=== PATIENT | male | born 1970 | race Caucasian/White ===

== ENCOUNTER 2016-07-15 14:23 | Emergency (ER) | payer OTHER ==
--- NOTE | 2016-07-15 16:14 | RAD ---
Indication: Right lower extremity pain and edema. Duplex Doppler sonography of the deep venous system of the right lower extremity was performed. Comparison is made with previous exam dated December 28, 2015. Right common femoral vein demonstrates echogenic material. This is due to prior thrombus. The proximal deep femoral vein in the proximal femoral vein demonstrates echogenic material without compressibility consistent with recent thrombus. No flow is noted. The mid and distal femoral vein and the popliteal vein is partially compressible. IMPRESSION: There is deep venous thrombosis involving the proximal deep femoral vein in the proximal femoral vein which appears to be occlusive. Nonocclusive deep venous thrombosis is noted in the right common femoral vein, mid and distal femoral vein and popliteal vein.
[2016-07-15 16:48] VITALS: BP 147/82
--- NOTE | 2016-07-15 22:45 | UC ---
Dyana Abbasi SooYoung, scribed for Tristen Sears MD on 07/15/16 at 1552 . Lower Extremity/Ankle HPI - HPI Summary HPI Summary: A 46 y/o M presents to [facility] [place] with c/o RLE pain above the knee onset approx a few days ago. Associated sx: edema. Denies SOB, CP. He's concerned about a DVT due to a history of DVT, last one was approx 6 months ago, no cause specified. Pt is non-compliant with his Xeralto. Pt is a smoker. - History of Current Complaint Chief Complaint: UCLowerExtremity Stated Complaint: LEG PAIN-PRIOR BLOOD CLOTS Time Seen by Provider: 07/15/16 14:53 Hx Obtained From: Patient Onset/Duration: Lasting Days, Still Present Severity Initially: Mild Severity Currently: Mild Pain Intensity: 0 Pain Scale Used: 0-10 Numeric - Allergies/Home Medications Allergies/Adverse Reactions: Allergies Allergy/AdvReac Type Severity Reaction Status Date / Time No Known Allergies Allergy Verified 07/15/16 14:35 Home Medications: Home Medications Aspirin [Meenakshi Aspirin EC Low Dose 81 MG] 1 tab PO ONCE PRN 07/15/16 [History Confirmed 07/15/16] PMH/Surg Hx/FS Hx/Imm Hx Previously Healthy: No Cardiovascular History: Hypertension, Myocardial Infarction - stent, Deep Vein Thrombosis Other History Of: Negative For: Anticoagulant Therapy - Surgical History Surgical History: Yes Surgery Procedure, Year, and Place: appendectomy. CARDIAC STENT PLACED 07/2012- [employer] 1.5-3T UP TO 720 G/CM - Family History Known Family History: Positive: Other - vasuclar issues - Social History Occupation: Employed Full-time Lives: Alone Alcohol Use: Rare Substance Use Type: Cocaine, Heroin, Marijuana Substance Use Comment - Amount & Last Used: (<1month) Smoking Status (MU): Current Some Day Smoker Type: Cigarettes, Smokeless Tobacco Amount Used/How Often: < one pack per month Length of Time of Smoking/Using Tobacco: 35 YEARS Have You Smoked in the Last Year: Yes Household Exposure Type: Cigarettes Review of Systems Respiratory: Negative Cardiovascular: Negative Musculoskeletal: Edema - RLE, Other: - POS: RLE PAIN ABOVE KNEE, All Other Systems Reviewed And Are Negative: Yes Physical Exam Triage Information Reviewed: Yes Vital Signs: Initial Vital Signs Temp 97.5 F 07/15/16 14:27 Pulse 97 07/15/16 14:27 Resp 18 07/15/16 14:27 BP 133/85 07/15/16 14:27 Pulse Ox 99 07/15/16 14:27 Vital Signs Reviewed: Yes - Additional Comments The patient is well-nourished in no acute distress and in no acute pain. The skin is warm and dry and skin color reflects adequate perfusion. HEENT: The head is normocephalic and atraumatic. The pupils are equal and reactive. The conjunctivae are clear and without drainage. Nares are patent and without drainage. Mouth reveals moist mucous membranes and the throat is without erythema and exudate. The external ears are intact. The ear canals are patent and without drainage. The tympanic membranes are intact. Neck is supple with full range of motion and non-tender. There are no carotid bruits. There is no neck vein distension. Respiratory: Chest is non-tender. Lungs are clear to auscultation and breath sounds are symmetrical and equal. Cardiovascular: TACHY. There is no murmur or rub auscultated. Pulses are symmetrical and equal. Abdomen: The abdomen is soft and non-tender. There are normal bowel sounds heard in all four quadrants and there is no organomegaly palpated. Musculoskeletal: There is no back pain noted. Extremities are non-tender with full range of motion. There is good capillary refill. MARKED SWELLING TO R THIGH COMPARED TO L; NO CALF TENDERNESS; GOOD POPLITEAL PULSE; SAW NO PROMINENT VEINS OR THROMBUS; AREA IS NOT RED OR ERYTHEMATOUS. PAIN IS MOSTLY LOCATED AT R GROIN. NO ADENOPATHY IN GROIN. FROM. Neurological: Patient is alert and oriented to person, place and time. The patient has symmetrical motor strength in all four extremities. Cranial nerves are grossly intact. Deep tendon reflexes are symmetrical and equal in all four extremities. Psychiatric: The patient has an appropriate affect and does not exhibit any anxiety or depression. Diagnostics - Laboratory Diagnostic Studies Completed/Ordered: US IMPRESSION, READ BY RADIOLOGIST: There is deep venous thrombosis involving the proximal deep femoral vein in the proximal femoral vein which appears to be occlusive. Nonocclusive deep venous thrombosis is noted in the right common femoral vein, mid and distal femoral vein and popliteal vein. Lower Extremity Course/Dx - Course Course Of Treatment: Elevated BP but has current hypertension diagnosis. Pt medications reviewed this visit. - Differential Dx/Diagnosis Differential Diagnosis/HQI/PQRI: DVT, Other - non compliant Provider Diagnoses: DVT in RLE. Blood pressure in poor control. Discharge - Discharge Plan Condition: Stable Disposition: HOME Prescriptions: HYDROcodone/ACETAMIN 5-325 MG* [[place] 5-325 TAB*] 1 tab PO Q6H PRN #20 tab MDD 4 PRN Reason: pain Rivaroxaban TAB(*) [Xarelto 15 mg(*)] 15 mg PO BID #42 tab Patient Education Materials: Hydrocodone/Acetaminophen (By mouth), Rivaroxaban (By mouth), Deep Venous Thrombosis (ED) Forms: *Work Release Referrals: Candy Alvarado MD [Primary Care Provider] - 7 Days (Follow up within the next 7 days.) Additional Instructions: Follow up with your primary care provider within the next 5 days. The documentation as recorded by the Dyana lima SooYoung accurately reflects the service I personally performed and the decisions made by , Tristen Sears MD.
== END 2016-07-15 16:42 | disposition home or self-care (01) ==
LOC: UCEAST 14:23
DX: I82.401 Acute embolism and thrombosis of unspecified deep veins of right lower extremity (principal); F17.210 Nicotine dependence, cigarettes, uncomplicated; I10 Essential (primary) hypertension; I25.2 Old myocardial infarction; F14.90 Cocaine use, unspecified, uncomplicated; F11.90 Opioid use, unspecified, uncomplicated; F12.90 Cannabis use, unspecified, uncomplicated; Z91.14 Patient's other noncompliance with medication regimen; Z86.718 Personal history of other venous thrombosis and embolism; Z79.82 Long term (current) use of aspirin; Z79.01 Long term (current) use of anticoagulants
CPT/HCPCS: 99212; G0463

== ENCOUNTER 2018-01-31 12:21 | Emergency (ER) | payer OTHER ==
--- NOTE | 2018-01-31 14:18 | UC ---
Back Pain HPI - HPI Summary HPI Summary: 48 year old male presents with 5 day history of right lower back pain. Describes as "sharp". Non-radiating. Worsens with bending, twisting, and squatting. Has history of kidney stone and diverticulitis in past but states that this pain is different. Had normal, formed BM yesterday. Denies fever, chills, chest pain, shortness of breath, abdominal pain, nausea, vomiting, diarrhea, blood in stool, dysuria, frequency, urgency, or hematuria. - History of Current Complaint Chief Complaint: UCBackPain Stated Complaint: LOWER BACK PAIN Time Seen by Provider: 01/31/18 14:15 Hx Obtained From: Patient Pain Intensity: 9 - Allergies/Home Medications Allergies/Adverse Reactions: Allergies Allergy/AdvReac Type Severity Reaction Status Date / Time No Known Allergies Allergy Verified 01/31/18 12:30 PMH/Surg Hx/FS Hx/Imm Hx Endocrine History: Dyslipidemia Cardiovascular History: Cardiac Disease, Hypertension, Myocardial Infarction, Deep Vein Thrombosis GI/ History: Kidney Stones, Diverticulitis Other History Of: Negative For: Anticoagulant Therapy - Surgical History Surgical History: Yes Surgery Procedure, Year, and Place: appendectomy. CARDIAC STENT PLACED 07/2012- [employer] 1.5-3T UP TO 720 G/CM - Family History Known Family History: Positive: Other - vasuclar issues - Social History Occupation: Employed Full-time Lives: With Family Alcohol Use: None Substance Use Type: None Substance Use Comment - Amount & Last Used: (<1month) Smoking Status (MU): Current Some Day Smoker Type: Cigarettes, Smokeless Tobacco Amount Used/How Often: < one pack per month Length of Time of Smoking/Using Tobacco: 35 YEARS Have You Smoked in the Last Year: Yes Household Exposure Type: Cigarettes Review of Systems All Other Systems Reviewed And Are Negative: Yes Constitutional: Negative: Fever, Chills Respiratory: Negative: Shortness Of Breath, Cough Cardiovascular: Negative: Palpitations, Chest Pain Gastrointestinal: Negative: Abdominal Pain, Vomiting, Diarrhea, Nausea Genitourinary: Negative: Dysuria, Hematuria, Frequency, Urgency Motor: Negative: Weakness Neurovascular: Negative: Decreased Sensation Musculoskeletal: Positive: Other: - See HPI Is Patient Immunocompromised?: No Physical Exam - Summary Physical Exam Summary: GENERAL APPEARANCE: Well developed, well nourished, alert and cooperative, and appears to be in no acute distress. NECK: Neck supple, non-tender. CARDIAC: Normal S1 and S2. No S3, S4 or murmurs. Rhythm is regular. There is no peripheral edema, cyanosis or pallor. Extremities are warm and well perfused. Capillary refill is less than 2 seconds. LUNGS: Clear to auscultation and percussion without rales, rhonchi, wheezing or diminished breath sounds. ABDOMEN: Positive bowel sounds. Soft, nondistended, nontender. No guarding or rebound. No masses or hepatosplenomegally. No CVA tenderness. MUSKULOSKELETAL: ROM intact to all extremities. No joint erythema or tenderness. Normal muscular development. BACK: Examination of the spine reveals normal gait and posture, no spinal deformity, decreased range of motion, or muscular spasm. Tenderness with palpation to soft tissue right lumbar back. NEUROLOGICAL: Strength and sensation symmetric and intact throughout. Reflexes 2 + throughout. SKIN: Skin normal color, texture and turgor with no lesions or eruptions. Triage Information Reviewed: Yes Vital Signs: Initial Vital Signs Temp 98.3 F 01/31/18 12:27 Pulse 113 01/31/18 12:27 Resp 18 01/31/18 12:27 BP 149/101 01/31/18 12:27 Pulse Ox 100 01/31/18 12:27 Vital Signs Reviewed: Yes Diagnostics - Laboratory Diagnostic Studies Completed/Ordered: POC UA 1+ protein, 1+ bilirubin, 1+ ketones. Back Pain Course/Dx - Course Course Of Treatment: 48 year old male presents with 5 day history of right lower back pain. Describes as "sharp". Non-radiating. Worsens with bending, twisting, and squatting. Has history of kidney stone and diverticulitis in past but states that this pain is different. Had normal, formed BM yesterday. Denies fever, chills, chest pain, shortness of breath, abdominal pain, nausea, vomiting , diarrhea, blood in stool, dysuria, frequency, urgency, or hematuria. Afebrile. VSS. Exam revealed soft tissue tenderness of the right lumbar back without spasm. POC UA showed 1+ protein, 1+ ketones, 1+ bilirubin. He was given injection of ketoralac 30 mg IM in the clinic. Prescribed naproxen 500 mg BID and cyclobenzaprine 10 mg Q8H PRN for low back strain. He is to follow up with PCP in 5 days if symptoms persist. Warning symptoms were reviewed with patient and with his past history of renal calculi and diverticulitis we discussed him having a low threshold for going to the ED for any worsening of symptoms. Verbalizes understanding and agrees with POC. - Differential Dx/Diagnosis Differential Diagnosis/HQI/PQRI: Arthritis, Herniated Disc, Renal Colic, Strain Provider Diagnosis: Acute low back pain Discharge - Sign-Out/Discharge Documenting (check all that apply): Patient Departure All imaging exams completed and their final reports reviewed: No Studies - Discharge Plan Condition: Stable Disposition: HOME Prescriptions: Cyclobenzaprine TAB* [Flexeril 10 MG TAB*] 10 mg PO TID PRN #15 tab PRN Reason: Spasms - Back Naproxen [Naproxen 500 mg tab] 500 mg PO Q12HR #30 tablet Patient Education Materials: Acute Low Back Pain (ED) Forms: *Work Release Referrals: Candy Alvarado MD [Primary Care Provider] - 5 Days (If no improvement.) Additional Instructions: The urine test performed in the clinic today did not show any evidence of an infection or blood that would suggest a kidney stone. I suspect that the pain is muscular however I cannot fully rule out a possible kidney stone or diverticulitis. You were given an injection of an anti-inflammatory pain medication called ketoraloac (Toradol) in the clinic today for the pain. Do not take any other anti-inflammatory medications such as ibuprofen (Advil, Motrin), naproxen (Aleve ), or aspirin for at least 8 hours after receiving this injection. You may start taking naproxen 500 mg 1 tab every 12 hours with food for next 5- 7 days tonight after 11:00 pm. Take cyclobenzaprine (Flexeril) 1 tab every 8 hours as needed for severe pain or spasm. This will cause drowsiness so do not take and drive or operate machinery. Use a heating pad for 15-20 minutes 4 times a day to help relax the muscles. Follow up with your primary care provider in 5 days if symptoms persist. Seek immediate medical attention in the emergency room if you develop fever greater than 100.5 F, have severe abdominal pain, persistent vomiting, blood in your bowel movement, worsening back pain, weakness, numbness, or tingling in leg (s), you lose control of your bowel or bladder, or have any worsening of symptoms. - Billing Disposition and Condition Condition: STABLE Disposition: Home
[2018-01-31] MEDS ORDERED: Ketorolac INJ* 30 MG/ML 1 ML VIAL IM ONE (14:43)
[2018-01-31 15:03] VITALS: BP 150/99
== END 2018-01-31 15:01 | disposition home or self-care (01) ==
LOC: UCEAST 12:21
DX: M54.5 Low back pain (principal); I10 Essential (primary) hypertension; I25.2 Old myocardial infarction; F17.210 Nicotine dependence, cigarettes, uncomplicated
CPT/HCPCS: 81003; 96372; 99212; G0463; J1885

== ENCOUNTER 2018-12-05 10:54 | Emergency (ER) | payer OTHER ==
[2018-12-05 11:16] VITALS: BP 155/111
--- NOTE | 2018-12-05 11:38 | UC ---
Shoulder Pain HPI - HPI Summary HPI Summary: Patient is a 48-year-old male presenting with left shoulder pain 1.5 weeks. She denies any injury or trauma. Notes pain is sharp and throbbing and worse with any kind of shoulder movement. It feels better when just relaxed at his side. Denies any numbness or tingling. Denies neck pain. Denies taking any medications for pain relief. Patient notes history of arthritis in his neck. - History of Current Complaint Chief Complaint: UCUpperExtremity Stated Complaint: SHOULDER INJURY Time Seen by Provider: 12/05/18 11:37 Hx Obtained From: Patient Onset/Duration: Gradual Onset, Lasting Weeks Pain Intensity: 3 - Allergies/Home Medications Allergies/Adverse Reactions: Allergies Allergy/AdvReac Type Severity Reaction Status Date / Time No Known Allergies Allergy Verified 12/05/18 11:09 PMH/Surg Hx/FS Hx/Imm Hx Other History Of: Negative For: Anticoagulant Therapy - Surgical History Surgical History: Yes Surgery Procedure, Year, and Place: appendectomy. CARDIAC STENT PLACED 07/2012- [employer] 1.5-3T UP TO 720 G/CM - Family History Known Family History: Positive: Other - vasuclar issues - Social History Alcohol Use: None Substance Use Type: None Substance Use Comment - Amount & Last Used: (<1month) Smoking Status (MU): Former Smoker Type: Cigarettes, Smokeless Tobacco Amount Used/How Often: < one pack per month Length of Time of Smoking/Using Tobacco: 35 YEARS Have You Smoked in the Last Year: Yes Household Exposure Type: Cigarettes Review of Systems All Other Systems Reviewed And Are Negative: Yes Constitutional: Positive: Negative Respiratory: Positive: Negative Cardiovascular: Positive: Negative Neurovascular: Positive: Negative. Negative: Decreased Sensation Musculoskeletal: Positive: Arthralgia, Decreased ROM, Myalgia. Negative: Edema Neurological: Positive: Weakness. Negative: Paresthesia, Numbness Physical Exam Triage Information Reviewed: Yes Appearance: Well-Appearing, No Pain Distress, Well-Nourished Vital Signs: Initial Vital Signs Temp 99 F 12/05/18 11:10 Pulse 95 12/05/18 11:10 Resp 16 12/05/18 11:10 BP 155/111 12/05/18 11:10 Pulse Ox 100 12/05/18 11:10 Vital Signs Reviewed: Yes Eyes: Positive: Conjunctiva Clear ENT: Positive: Hearing grossly normal Neck: Positive: Supple Respiratory: Positive: No respiratory distress Cardiovascular: Positive: Pulses Normal, Brisk Capillary Refill Musculoskeletal: Positive: Strength Intact, No Edema, ROM Limited @ - Left arm extension, internal and external rotation, Other: - tenderness to palpation of the left acromioclavicular joint. tenderness to palpation of left trapezius muscle Neurological: Positive: Alert Psychological: Positive: Age Appropriate Behavior Diagnostics - Radiology left shoulder Radiology Interpretation Completed By: Radiologist Summary of Radiographic Findings: Report: #. Negative for fracture or suspicious focal osseous lesions. #. Normal acromioclavicular and glenohumeral joint alignment. #. Moderately severe osteoarthritis at the acromioclavicular joint and mild osteophytic lipping without significant joint space narrowing at the glenohumeral joint. #. Negative for calcific tendinopathy or abnormal soft tissue contour. IMPRESSION: #. Osteoarthritis most prominent at the acromioclavicular joint. Shoulder Course/Dx - Course Course Of Treatment: Discussed osteoarthritis findings on x-ray with patient. I am treating with naproxen and Flexeril for pain and symptomatic relief. Instructed to follow-up with orthopedics or sports medicine for further evaluation. Patient voiced understanding and agreed with the treatment plan. - Differential Dx/Diagnosis Provider Diagnosis: Osteoarthritis of acromioclavicular joint Discharge ED - Sign-Out/Discharge Documenting (check all that apply): Patient Departure All imaging exams completed and their final reports reviewed: Yes - Discharge Plan Condition: Stable Disposition: HOME Prescriptions: Cyclobenzaprine TAB* [Flexeril 10 MG TAB*] 10 mg PO BID PRN #20 tab PRN Reason: Spasms - Muscle Naproxen TAB* [Naprosyn 250 mg TAB*] 500 mg PO BID PRN #30 tab PRN Reason: Pain - Moderate Patient Education Materials: Osteoarthritis (ED) Forms: *Work Release Referrals: [facility] [Outside] - As Soon As Possible [facility] [Outside] - If Needed Leila Peace MD [Medical Doctor] - As Soon As Possible Additional Instructions: As discussed, your xrays should moderate to severe osteoarthritis in your shoulder. Rest, ice, and/or heat to help relieve pain. Take naproxen as prescribed for pain relief. Do not take ibuprofen or other NSAIDS if you are taking naproxen. You may also take flexeril for relief of muscle spasming. This may make you drowsy, so do not drive or operate heavy machinery while taking it. Follow-up with the orthopedic or sports medicine referrals below as soon as possible for further evaluation. - Billing Disposition and Condition Condition: STABLE Disposition: Home
[2018-12-05] MEDS ORDERED: Ibuprofen TAB* 600 MG PO ONE (12:06)
== END 2018-12-05 12:28 | disposition home or self-care (01) ==
LOC: UCEAST 10:54
DX: M19.012 Primary osteoarthritis, left shoulder (principal); Z95.5 Presence of coronary angioplasty implant and graft; Z87.891 Personal history of nicotine dependence
CPT/HCPCS: 99212; A9270-GY; G0463

== ENCOUNTER 2018-12-27 11:06 | Emergency (ER) | payer OTHER ==
--- OUTSIDE RECORDS SUMMARY | 2018-12-27 11:10 | XMS REPORT | Continuity of Care Document ---
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 [phone] Medicine Problems Description No Information Available Social History Type Date Description Comments Sex Unknown Tobacco Use Start: Unknown Heavy tobacco smoker (more than 10 cigarettes/day) Smoking Status Reviewed: 12/14/18 Heavy tobacco smoker (more than 10 cigarettes/day) Allergies, Adverse Reactions, Alerts Description No Known Drug Allergies Medications Active Medications SIG Qnty Indications Ordering Provider Date Atorvastatin Calcium 1 by mouth 90tabs I25.10 Jaspreet Covarrubias 12/14/2018 40mg every day MD Sherry Tablets Lisinopril 1 by mouth 90tabs I10 Jaspreet Covarrubias 12/14/2018 20mg Tablets every day MD Sherry Meenakshi Advanced Aspirin one orally 180tabs M19.011 Jaspreet Covarrubias 12/14/2018 Regular Strength twice daily MD Sherry 325mg Tablets History Medications No Active Medications Unknown 12/14/2018 - 12/14/2018 Immunizations Description No Information Available Vital Signs Date Vital Result Comment 12/14/2018 3:38pm BP Systolic 144 mmHg BP Diastolic 100 mmHg Heart Rate 74 /min Body Temperature 97.9 F Respiratory Rate 12 /min Height 70.5 inches 5'10.50" measured Weight 230.00 lb BMI (Body Mass Index) 32.5 kg/m2 Results Description No Information Available Procedures Description No Information Available Medical Devices Description No Information Available Encounters Description No Information Available Assessments Date Code Description Provider 12/14/2018 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 12/14/2018 I10 Essential (primary) hypertension Jaspreet Powell MD 12/14/2018 M19.011 Primary osteoarthritis, right shoulder Jaspreet Powell MD 12/14/2018 I73.9 Peripheral vascular disease, unspecified Jaspreet Powell MD Plan of Treatment 12/14/2018 - Jaspreet Powell MDI25.10 Atherosclerotic heart disease of [place] coronary artery without angina pectorisNew Medication:Atorvastatin Calcium 40 mg - 1 by mouth every dayComments:resume the previous medication.Follow up:2 weeks.I10 Essential (primary) hypertensionNew Medication: Lisinopril 20 mg - 1 by mouth every dayM19.011 Primary osteoarthritis, right shoulderNew Medication:Meenakshi Advanced Aspirin Regular Strength 325 mg - one orally twice gqmkmP89.9 Peripheral vascular disease, unspecifiedAllComments: Medication Management Patient Understands medications he's taking? Yes No Are there Barriersto Adherence? Yes No Has the patient been asked about herbal supplements and therapies, and OTC meds? Yes No Functional Status Description No Information Available Mental Status Description No Information Available Referrals Description No Information Available
[2018-12-27 11:23] VITALS: BP 149/111
--- NOTE | 2018-12-27 12:07 | UC ---
Respiratory Complaint HPI - HPI Summary HPI Summary: CHIEF COMPLAINT and HPI: This is a 48-year-old white male who complains of 2 days of right chest discomfort, subscapular, only with inhalation. The patient does smoke intermittently. He does have a history of right leg DVT. He states that there was never an explanation for his "blood clots." One episode, according to the patient, was 2 years ago and the other was one year ago. His discomfort is described as mild to moderate. He denies shortness of breath or cough. According to the patient, his right leg is chronically larger than his left. VITAL SIGNS & SaO2 REVIEWED. Within normal limits unless noted here. blood pressure is 149/111. Patient is not on and does not want to take antihypertensive medication. NURSES NOTE REVIEWED."right lung pain started Monday not resolving" x-ray which shows - History of Current Complaint Chief Complaint: UCRespiratory Stated Complaint: LUNG PAIN Time Seen by Provider: 12/27/18 12:01 Pain Intensity: 7 - Allergies/Home Medications Allergies/Adverse Reactions: Allergies Allergy/AdvReac Type Severity Reaction Status Date / Time No Known Allergies Allergy Verified 12/27/18 11:22 Home Medications: Home Medications NK [No Home Medications Reported] 12/27/18 [History Confirmed 12/27/18] PMH/Surg Hx/FS Hx/Imm Hx - Additional Past Medical History Additional PMH: PAST MEDICAL HISTORY- 2 episodes of DVT. GA. HTN. Stent. CHRONIC and RECURRENT HEALTH PROBLEM LIST REVIEWED. Information relevant to present complaint: patient had an GA in 2012 and a stent was placed. He has a history of hypertension without medications. He has GERD and intermittent back pain. He has panic disorder and does smoke. VISIT HISTORY REVIEWED. MEDICATIONS & ALLERGIES REVIEWED. HYPERTENSION STATUS: patient is hypertensive, but refuses to takemedication. FAMILY HISTORY: cancer. 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 Previously Healthy: No Cardiovascular History: Cardiac Disease, Hypertension, Deep Vein Thrombosis Other History Of: Negative For: Anticoagulant Therapy - Surgical History Surgical History: Yes Surgery Procedure, Year, and Place: appendectomy. CARDIAC STENT PLACED 07/2012- [facility] [place] 1.5-3T UP TO 720 G/CM - Family History Known Family History: Positive: Other - vasuclar issues - Social History Alcohol Use: None Substance Use Type: None Substance Use Comment - Amount & Last Used: (<1month) Smoking Status (MU): Former Smoker Type: Cigarettes, Smokeless Tobacco Amount Used/How Often: < one pack per month Length of Time of Smoking/Using Tobacco: 35 YEARS Have You Smoked in the Last Year: Yes Household Exposure Type: Cigarettes Review of Systems All Other Systems Reviewed And Are Negative: Yes Constitutional: Positive: Negative Respiratory: Positive: Cough, Other - pain with ambulation on the right side. Negative: Shortness Of Breath Cardiovascular: Positive: Negative Gastrointestinal: Positive: Negative Genitourinary: Positive: Negative Is Patient Immunocompromised?: No Physical Exam - Summary Physical Exam Summary: Appearance: The patient is well-appearing, is in no pain or distress, and is well-nourished. Eyes: Conjunctiva are clear. Pupils are equal and reactive to light and accommodation. Extra ocular muscle movement is intact. ENT: The hearing is grossly normal, the pharynx is normal, and the TMs are normal. There is no muffled or hoarse voice. No stridor. Neck: The neck is supple and there is no lymphadenopathy. Respiratory: The chest is non-tender to palpation and without crepitus. The lungs are clear, there are normal breath sounds, and there is no respiratory distress. No wheezes, rales or rhonchi.. No pain with palpation near the right scapula. Cardiovascular: Heart sounds reveal a regular rate and rhythm. There are no clicks, rubs or murmurs. There are no carotid bruits or thrills. Circulation is grossly intact. Abdomen: The abdomen is soft and nontender. There is no organomegaly. Bowel sounds are present and within normal limits. No point tenderness at McBurneys point. No CVA tenderness. Musculoskeletal: Strength is intact. The patient moves all extremities. measurement of the left calf is 14.5 inches. Measurement of the right calf is 16.0 inches. The patient has a negative Homans sign. There is no signs of thrombophlebitis. The patient states that his legs are chronically dissimilar in their size. Neurological: The patient is alert. Motor and sensory are examination grossly intact. Speech is normal. Psychological: The patient displays age appropriate behavior, and is conversant. GCS=15. Skin: Negative for rashes. Triage Information Reviewed: Yes Vital Signs: Initial Vital Signs Temp 98 F 12/27/18 11:19 Pulse 73 12/27/18 11:19 Resp 17 12/27/18 11:19 BP 149/111 12/27/18 11:19 Pulse Ox 99 12/27/18 11:19 Respiratory Course/Dx - Course Course Of Treatment: Patient presents with the complaint of right chest discomfort with inhalation.The patient denies recent long travel, or previous pulmonary embolus. History of DVT x 2. There is no edema or acute leg swelling. Legs: there is no overlying erythema, warmth or discoloration. There are no lesions or break in the skin integrity. Diameter of the calves are-dissimilar. The right calf is chronically larger than the left. Soft tissue of the posterior lower leg are soft, supple, and no palpable cords were felt, or evidence of thrombophlebitis. The medial thighs without soft tissue swelling. Negative Homans sign. Chest is not tender to palpation. Patient's lungs are clear. X-ray is c/w a small pneumonia or possible PE. I discussed the findings with the patient. I explained that he could have pneumonia or a blood clot in his lung and with his history of cardiac disorders , stent, hypertension, smoking and twois DVTs, he needs further evaluation in the emergency department. Patient understands and will go to the ED now. x ray reading: The heart is within normal limits in size. Mediastinal and hilar contours appear within normal limits. The lungs are normally inflated. There is a faint peripheral wedge-shaped infiltrate present in the right midlung seen only on the PA view. The lungs are otherwise clear. No pleural effusion is seen. IMPRESSION: SMALL PLEURAL-BASED WEDGE-SHAPED INFILTRATE CONSIDER PNEUMONIA LESS LIKELY PULMONARY INFARCT. RECOMMEND CORRELATION WITH D-DIMER. that we really didn't favor for - Differential Dx/Diagnosis Differential Diagnosis/HQI/PQRI: Lower Resp Infection, Pneumothorax, Pulmonary Embolism, Other - pneumonia Provider Diagnosis: Pulmonary embolus Discharge ED - Sign-Out/Discharge Documenting (check all that apply): Patient Departure All imaging exams completed and their final reports reviewed: Yes - Discharge Plan Condition: Critical Disposition: HOME Patient Education Materials: Pulmonary Embolism (ED) Forms: *Work Release Referrals: No Primary Care Phys,NOPCP [Primary Care Provider] - Additional Instructions: WE DISCUSSED: PLEASE SEEK CARE AT THE EMERGENCY DEPARTMENT NOW. YOUR DIAGNOSIS IS:abnormal chest x-ray; possible pneumonia or pulmonary embolus. Hypertension Discharge Instructions: Your blood pressure reading today was 149/111, indicating HYPERTENSION. Follow- up with your primary care provider within 4 weeks for blood pressure check and appropriate recommendations and treatment, as needed. I have given you a work note. - Billing Disposition and Condition Condition: CRITICAL Disposition: Home
== END 2018-12-27 13:31 | disposition home or self-care (01) ==
LOC: UCEAST 11:06
DX: I26.99 Other pulmonary embolism without acute cor pulmonale (principal); I82.403 Acute embolism and thrombosis of unspecified deep veins of lower extremity, bilateral; I10 Essential (primary) hypertension; R05 Cough; I25.2 Old myocardial infarction; Z98.61 Coronary angioplasty status; Z87.891 Personal history of nicotine dependence
CPT/HCPCS: 71046; 99212; G0463